=== PATIENT | male | born 2005 | race Caucasian/White ===

== ENCOUNTER 2024-07-06 18:26 | Emergency (ER) | payer OTHER, SELFPAY ==
[2024-07-06 18:29] VITALS: BP 117/62; PULSE 73; TEMP 36.6; O2SAT 100; BMI 20.4
[2024-07-06] MEDS: ONDANSETRON PF 4 MG/2 ML VIAL IV ×2 (18:52→21:01)
--- NOTE | 2024-07-06 18:54 | ED_ITS ---
HPI - Nausea/Vomiting/Diarrhea General Chief complaint: Nausea/Vomiting/Diarrhea Stated complaint: VOMITING Time Seen by Provider: 07/06/24 18:49 Source: patient Mode of arrival: walk-in History of Present Illness HPI Narrative: 18-year-old male presents for nausea and vomiting. It came on at 230 this afternoon after eating at a restaurant. His girlfriend thinks it might be due to nerves, they were scheduled to go on a trip tomorrow morning to [place]. He has had no hematemesis or diarrhea or fever. She did not fall ill. The patient states this has happened to him about 10 times in the past and he smokes marijuana occasionally. He felt fine earlier in the day, prior to becoming ill. Related Data Previous Rx's ?Medication ?Instructions ?Recorded ondansetron 4 mg disintegrating 4 mg PO Q6H PRN nausea and 07/06/24 tablet vomiting #20 tabs Allergies Allergy/AdvReac Type Severity Reaction Status Date / Time No Known Drug Allergies Allergy Verified 07/06/24 18:34 Review of Systems ROS Narrative A ten point review of systems is negative except as noted above. Exam Narrative Exam Narrative: Nurses note and vital signs reviewed and patient is not hypoxic. General: The patient appears uncomfortable and is in no respiratory distress. Skin: Warm, dry, mild pallor noted. There is no rash noted. Head: Normocephalic, atraumatic Eye: Normal conjunctiva, no drainage Ears, Nose, Mouth, and Throat: oral mucosa is moist. Nares patent. Cardiovascular: Regular Rate and Rhythm Respiratory: Patient is in no distress, no accessory muscle use, lungs are clear to auscultation, no wheezing, rales or rhonchi Back: non-tender GI: Soft, nontender, nondistended Musculoskeletal: The patient has no evidence of calf tenderness, no pitting edema, symmetrical pulses noted bilaterally Neurological: A&O, normal speech Psychiatric: Cooperative Constitutional Vital Signs, click to edit/add: Last Vital Signs Temp 97.9 F 07/06/24 18:29 Pulse 73 07/06/24 18:29 Resp 18 07/06/24 18:29 BP 117/62 07/06/24 18:29 Pulse Ox 100 07/06/24 18:29 O2 Del Method Room Air 07/06/24 18:29 Course Vital Signs Vital signs: Vital Signs Temperature 97.9 F 07/06/24 18:29 Pulse Rate 73 07/06/24 18:29 Respiratory Rate 18 07/06/24 18:29 Blood Pressure 117/62 07/06/24 18:29 Pulse Oximetry 100 07/06/24 18:29 Oxygen Delivery Method Room Air 07/06/24 18:29 Temperature 97.9 F 07/06/24 18:29 Pulse Rate 73 07/06/24 18:29 Respiratory Rate 18 07/06/24 18:29 Blood Pressure 117/62 07/06/24 18:29 Pulse Oximetry 100 07/06/24 18:29 Oxygen Delivery Method Room Air 07/06/24 18:29 MDM - Nausea/Vomiting/Diarrhea MDM Narrative Medical decision making narrative: The patient is feeling improved after IV fluids and IV Zofran and Reglan. I have no clinical suspicion of acute intra-abdominal process. Treatment diagnosis and follow-up were discussed with the patient. Differential Diagnosis Differential diagnosis: Likely food poisoning, gastroenteritis and dehydration Lab Data Attestation: I reviewed the patient's lab results. Labs: Lab Results 07/06/24 Range/Units 18:38 WBC 16.5 H (4.0-11.0) 10^3/uL RBC 5.25 (4.70-6.10) 10^6/uL Hgb 15.7 (14.0-18.0) g/dL Hct 46.7 (42.0-54.0) % MCV 89.0 (80.0-94.0) fL MCH 29.9 (25.9-34.0) pg MCHC 33.6 (29.9-35.2) g/dL RDW 12.0 (11.0-15.0) % Plt Count 315 (150-450) 10^3/uL MPV 10.5 (9.5-13.5) fL Neut % (Auto) 79.2 H (43.0-75.0) % Lymph % (Auto) 12.0 L (20.5-60.0) % [place] % (Auto) 6.9 (1.7-12.0) % Eos % (Auto) 0.3 L (0.9-7.0) % Baso % (Auto) 1.0 (0.2-2.0) % Neut # (Auto) 13.0 H (1.4-6.5) 10^3/uL Lymph # (Auto) 2.0 (1.2-3.8) 10^3/uL [place]ier # (Auto) 1.1 H (0.3-0.8) 10^3/uL Eos # (Auto) 0.1 (0.0-0.7) 10^3/uL Baso # (Auto) 0.2 H (0.0-0.1) 10^3/uL Abs Immat Gran (auto) 0.10 H (0.00-0.03) 10^3/uL Imm/Tot Granulo (auto) 0.6 H (0.0-0.5) % Sodium 138 (136-145) mmol/L Potassium 3.3 L (3.5-5.1) mmol/L Chloride 100 (98-107) mmol/L Carbon Dioxide 26.9 (21.0-32.0) mmol/L Anion Gap 14.4 BUN 13.0 (6.4-19.3) mg/dL Creatinine 1.21 (0.70-1.30) mg/dL Est GFR ( Amer) >60 (>=60) Est GFR (Non-Af Amer) >60 (>=60) BUN/Creatinine Ratio 10.7 Glucose 170 H (74-106) mg/dL Calcium 9.4 (8.5-10.1) mg/dL Discharge Plan Discharge Stand Alone Forms: Portal Instructions Chief Complaint: Nausea/Vomiting/Diarrhea Clinical Impression: Nausea and vomiting Patient Disposition: Home, Self-Care Time of Disposition Decision: 21:39 Condition: Good Mode of Transportation: Private Vehicle Prescriptions / Home Meds: New ondansetron 4 mg tablet,disintegrating 4 mg PO Q6H PRN (Reason: nausea and vomiting) Qty: 20 0RF Print Language: Bahraini Instructions: Acute Nausea and Vomiting (ED) Referrals: SUNITA VIVAR [Primary Care Provider] - 1 week
[2024-07-06 19:03] LABS: Basophils Absolute Auto 0.2 10^3/uL (0.0-0.1); Eosinophils Absolute Auto 0.1 10^3/uL (0.0-0.7); Eosinophils Percent Auto 0.3 % (0.9-7.0); Hematocrit 46.7 % (42.0-54.0); Hemoglobin 15.7 g/dL (14.0-18.0); Immature Granulocytes Pct Auto 0.6 % (0.0-0.5); Mean Corpuscular HGB Conc 33.6 g/dL (29.9-35.2); Mean Corpuscular Hemoglobin 29.9 pg (25.9-34.0); Mean Platelet Volume 10.5 fL (9.5-13.5); Monocytes Absolute Auto 1.1 10^3/uL (0.3-0.8); Monocytes Percent Auto 6.9 % (1.7-12.0); Neutrophils Percent Auto 79.2 % (43.0-75.0); Platelet Count 315 10^3/uL (150-450); Red Blood Count 5.25 10^6/uL (4.70-6.10); White Blood Count 16.5 10^3/uL (4.0-11.0)
[2024-07-06] MEDS: 0.9 % SODIUM CHLORIDE 1,000 ML 1000 ML IV ×2 (19:08→21:01)
[2024-07-06 19:09] LABS: Anion Gap 14.4; BUN Creatinine Ratio 10.7; Calcium 9.4 mg/dL (8.5-10.1); Carbon Dioxide 26.9 mmol/L (21.0-32.0); Chloride 100 mmol/L (98-107); Estimated GFR (African America >60 (>=60); Estimated GFR (Non-African Ame >60 (>=60); Glucose 170 mg/dL (74-106); Potassium 3.3 mmol/L (3.5-5.1); Sodium 138 mmol/L (136-145)
[2024-07-06] MEDS: METOCLOPRAMIDE HCL 10 MG/2 ML VIAL IVP (21:01)
[2024-07-06 21:56] VITALS: BP 112/66; PULSE 70; O2SAT 100
== END 2024-07-06 21:58 | disposition home or self-care (01) ==
PROVIDERS: Emergency Provider Emergency Medicine; PCP Nurse Practitioner
DX: R11.2 Nausea with vomiting, unspecified (principal); F12.90 Cannabis use, unspecified, uncomplicated
CPT/HCPCS: 36415; 80048; 85025; 96361; 96374; 96375; 96376; 99284; J2405; J2765